=== PATIENT | female | born 1940 | race Asian ===

== ENCOUNTER 2023-09-03 10:44 | Emergency (ER) | payer OTHER ==
[~2023-09-03] VITALS: Ht 160 cm; Wt 49.9 kg
[2023-09-03 12:51] VITALS: BP 134/80; TEMP 98.1; O2SAT 97
== END 2023-09-03 12:52 | disposition home or self-care (01) ==
LOC: ER 10:44
DX: S02.2XXA Fracture of nasal bones, initial encounter for closed fracture (principal); S00.11XA Contusion of right eyelid and periocular area, initial encounter; I10 Essential (primary) hypertension; I48.91 Unspecified atrial fibrillation; E11.9 Type 2 diabetes mellitus without complications; W18.30XA Fall on same level, unspecified, initial encounter; Y93.89 Activity, other specified; Y92.89 Other specified places as the place of occurrence of the external cause; Y99.8 Other external cause status
CPT/HCPCS: 70450-TC; 70486-TC; 72125-TC